=== PATIENT | female | born 1975 | race Caucasian/White ===

== ENCOUNTER 2025-01-13 20:18 | Emergency (ER) | payer MEDICAID, SELFPAY ==
[2025-01-13 20:25] VITALS: BP 94/59; PULSE 78; RESP 16; TEMP 36.6; O2SAT 98
[2025-01-13 20:32] VITALS: RESP 18
[2025-01-13 20:44] VITALS: BP 122/78; PULSE 74; RESP 18; O2SAT 96
[2025-01-13 20:48] VITALS: BP 122/78; PULSE 74; RESP 18; O2SAT 96
--- NOTE | 2025-01-13 23:17 | W.ED.GENAD ---
Discharge Plan Disposition Patient Disposition: Home Discharge Details Clinical Impression: Dizziness Primary Care Provider: Unknown,Unknown ED Provider: Rola Da Silva Discharge Instructions Instructions: Dizziness, Adult ED Additional Instructions: you are leaving prior to complete evaluation, please follow-up with pcp at your earliest ability you understand the risk associated with this decision please keep yourself hydrated Discharge Data Discharge Date/Time-TO BE ENTERED AT DEPARTURE: 01/13/25 20:49 HPI General Date/Time Provider Initiated Documentation: 01/13/25 20:31. 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 She started about 4 PM and she thinks the temperature by the Wild is approximately 130 degrees she felt hot and dizzy like she might pass out and was sent to the emergency department for assessment. She denies any chest pain or shortness of breath denies chance of . General Stated Complaint: Dizzy/Sync PREMA: 3 Exam Narrative Exam Narrative: Alert and oriented 49-year-old female no acute distress pupils equal round reactive to light and accommodation lungs clear to auscultation cardiac rate rhythm regular no abdominal tenderness alert and orient x 4 ambulatory with steady gait cranial nerves II through XII intact Course Vital Signs Vital signs: Vital Signs Temperature 36.6 C 01/13/25 20:25 Pulse 78 01/13/25 20:25 Respiratory Rate 16 01/13/25 20:25 Blood Pressure 94/59 L 01/13/25 20:25 Pulse Oximetry 98 01/13/25 20:25 Temperature 36.6 C 01/13/25 20:25 Temperature Source Oral 01/13/25 20:25 Pulse 74 01/13/25 20:48 Respiratory Rate 18 01/13/25 20:48 Respiratory Effort Normal 01/13/25 20:32 Respiratory Depth Normal 01/13/25 20:32 Respiratory Pattern Normal 01/13/25 20:32 Blood Pressure 122/78 01/13/25 20:48 Blood Pressure Mean 92 01/13/25 20:44 Blood Pressure Position Sitting 01/13/25 20:25 Pulse Oximetry 96 01/13/25 20:48 Oxygen Delivery Method Room Air 01/13/25 20:44 Oxygen Flow Rate 0 01/13/25 20:44 Pain Level 0 01/13/25 20:44 Medical Decision Making 49-year-old female presenting in no acute distress with initially hypotensive, she states she feels significantly improved and declines any additional interventions. I recommended some blood work and an EKG patient declines as she states she feels improved. She is aware that she has not been fully evaluated and leaving against medical recommendation she states she will follow-up with primary care physician she asked for a work note I stated that I cannot give her note to return to work as she is not been evaluated she understands this she understands the risks of leaving against her medical recommendation and is discharged home with stable vitals [facility] All Active Problems (Updated 01/13/25 @ 20:45 by MERRICK Noel) Dizziness (Acute) Social History Smoking/Tobacco Use Status: Current every day Smoking risk assessment performed?: Yes Alcohol Intake: never Drug use: Never Substance use type: does not use Do you feel safe at home: Yes Do you feel safe in your relationship?: Yes
== END 2025-01-13 20:49 | disposition home or self-care (01) ==
LOC: ER 20:56
PROVIDERS: Emergency Provider Physician Assistant
DX: R42 Dizziness and giddiness (principal); R11.0 Nausea; F17.200 Nicotine dependence, unspecified, uncomplicated
CPT/HCPCS: 99283